=== PATIENT | male | born 1975 | race Caucasian/White ===

== ENCOUNTER 2024-03-21 16:35 | Inpatient (IN) | payer MEDICAID, OTHER ==
[~2024-03-21] VITALS: Ht 188 cm; Wt 81.6 kg
[2024-03-21 16:40] VITALS: O2SAT 100
[2024-03-21 19:51] LABS: HEMATOCRIT 32.6 % (42.0-52.0); HEMOGLOBIN 10.9 g/dL (14.0-18.0); MEAN CORPUSCULAR HEMOGLOBIN 31.7 pg (28.0-32.0); MEAN CORPUSCULAR HGB CONC 33.5 g/dL (31.0-37.0); MEAN CORPUSCULAR VOLUME 94.6 fL (80.0-94.0); PLATELET 199 x1000/uL (130-400); RED BLOOD CELL COUNT 3.45 mill/uL (4.7-6.1); RED CELL DISTRIBUTION WIDTH 16.8 % (11.6-14.6)
[2024-03-21 19:53] LABS: CHLORIDE 107 mEq/L (98-107); POTASSIUM 3.3 mEq/L (3.5-5.1); SODIUM 140 mEq/L (136-145)
[2024-03-21 19:54] LABS: CALCIUM 8.5 mg/dL (8.7-10.4); CARBON DIOXIDE 27 mEq/L (21-32)
[2024-03-21 19:59] LABS: CREATININE 1.1 mg/dL (0.6-1.3); GLUCOSE 100 mg/dL (70-105); UREA NITROGEN BLOOD 12 mg/dL (9-23)
[2024-03-21 20:47] LABS: D-DIMER 1.17 mg/L FEU (<0.50); INR 0.9; PARTIAL THROMBOPLASTIN TIME 24.2 sec (23.4-31.0); PROTHROMBIN TIME 10.3 sec (9.6-11.0)
[2024-03-21 22:24] LABS: TROPONIN I HIGH SENSITIVITY 85 ng/L (3.0-53)
[2024-03-21] MEDS: POTASSIUM CHLORIDE 20MEQ/PACKET PO ONE (23:05)
[2024-03-22 00:42] LABS: TROPONIN I HIGH SENSITIVITY 134 ng/L (3.0-53)
[2024-03-22] MEDS: ENOXAPARIN 80MG/0.8ML SYR SUBCUT ONE (00:45)
[2024-03-22] MEDS ORDERED: IOHEXOL-350 100 ML BOTTLE ONE (02:19)
[2024-03-22 09:00] VITALS: BP 157/81; PULSE 75; RESP 16; TEMP 36.696
[2024-03-22] MEDS ORDERED: ATOR20TA65 PO (09:46)
[2024-03-22] MEDS ORDERED: METO-539 PO (09:46)
[2024-03-22] MEDS ORDERED: ASPI-1497 PO (09:46)
[2024-03-22 10:30] VITALS: BP 154/88; PULSE 62; RESP 18; TEMP 36.44736; O2SAT 98
[2024-03-22 12:00] VITALS: BP 121/85; PULSE 71; RESP 18; TEMP 36.61404; O2SAT 99
[2024-03-22] MEDS ORDERED: ENOXAPARIN 40MG/0.4ML SYR SUBCUT SCH (12:15)
[2024-03-22] MEDS ORDERED: CLONIDINE 0.1MG TABLET PO PRN (12:15)
[2024-03-22] MEDS ORDERED: ONDANSETRON HCL 4MG/2ML INJ IV PRN (12:15)
[2024-03-22] MEDS ORDERED: MORPHINE SULFATE 2 MG/ML INJ (NOT FOR IM USE) IV PRN (12:15)
[2024-03-22] MEDS ORDERED: ACETAMINOPHEN 325MG TABLET PO PRN (12:15)
[2024-03-22 13:47] LABS: CLARITY URINE CLEAR (CLEAR); COLOR URINE YELLOW (YELLOW); GLUCOSE URINE NEGATIVE (NEGATIVE); KETONES URINE NEGATIVE (NEGATIVE); LEUKOCYTE ESTERASE URINE NEGATIVE (NEGATIVE); NITRITE URINE NEGATIVE (NEGATIVE); OCCULT BLOOD URINE NEGATIVE (NEGATIVE); PROTEIN URINE TRACE (NEGATIVE); SPECIFIC GRAVITY URINE 1.046 (1.005-1.030)
[2024-03-22 14:13] LABS: *AMPHETAMINES SCREEN URINE NEGATIVE (NEGATIVE); *BENZODIAZEPINES SCREEN URINE NEGATIVE (NEGATIVE)
[2024-03-22 14:14] LABS: *BARBITURATES SCREEN URINE NEGATIVE (NEGATIVE); *COCAINE SCREEN URINE NEGATIVE (NEGATIVE); CANNABINOID URINE SCREEN NEGATIVE (NEGATIVE); ECSTASY MDMA SCREEN URINE NEGATIVE (NEGATIVE); METHADONE URINE SCREEN NEGATIVE (NEGATIVE); OPIATES URINE SCREEN NEGATIVE (NEGATIVE); PHENCYCLIDINE URINE SCREEN NEGATIVE (NEGATIVE)
[2024-03-22 14:24] LABS: BACTERIA URINE FEW; RBC URINE 0-2 /hpf (0-2); SQUAMOUS EPITHELIAL CELL URINE NONE SEEN /lpf (RARE/1+); WBC URINE 0-2 /hpf (0-2); YEAST URINE NONE SEEN
[2024-03-22 16:00] VITALS: BP 133/82; PULSE 67; RESP 16; TEMP 36.6696; O2SAT 100
[2024-03-22 17:11] LABS: CREATINE KINASE MB FRACTION < 0.5 ng/mL (0.5-3.6); TROPONIN I HIGH SENSITIVITY 37 ng/L (3.0-53)
[2024-03-22 17:12] LABS: CREATINE KINASE 26 IU/L (46-171)
[2024-03-22 20:00] VITALS: BP 115/77; PULSE 82; RESP 19; TEMP 36.50292; O2SAT 100
[2024-03-22] MEDS ORDERED: ZOLPIDEM TARTRATE 5MG TABLET PO PRN (21:00)
[2024-03-22] MEDS: ENOXAPARIN 80MG/0.8ML SYR SUBCUT SCH (23:12)
[2024-03-23] VITALS: BP 116/78; PULSE 89; RESP 18; TEMP 36.3918; O2SAT 100
[2024-03-23 00:33] LABS: CREATINE KINASE MB FRACTION < 0.5 ng/mL (0.5-3.6)
[2024-03-23 00:34] LABS: CREATINE KINASE 25 IU/L (46-171); TROPONIN I HIGH SENSITIVITY 28 ng/L (3.0-53)
[2024-03-23 04:00] VITALS: BP 129/83; PULSE 69; RESP 19; TEMP 36.114; O2SAT 100
[2024-03-23 05:51] LABS: CHLORIDE 108 mEq/L (98-107); POTASSIUM 3.7 mEq/L (3.5-5.1); SODIUM 142 mEq/L (136-145)
[2024-03-23 05:52] LABS: BASOPHILS % 0.8 % (0.0-2.0); EOSINOPHILS % 1.6 % (0.0-5.0); HEMATOCRIT. 32.8 % (42.0-52.0); HEMOGLOBIN. 10.7 g/dL (14.0-18.0); LYMPHOCYTES % 36.4 % (20.0-50.0); MEAN CORPUSCULAR HEMOGLOBIN 30.8 pg (28.0-32.0); MEAN CORPUSCULAR HGB CONC 32.5 g/dL (31.0-37.0); MEAN CORPUSCULAR VOLUME 94.6 fL (80.0-94.0); MEAN PLATELET VOLUME 7.1 fl (7.4-10.4); MONOCYTES % 10.4 % (2.0-8.0); NEUTROPHILS % 50.8 % (40.0-76.0); PLATELET 205 x1000/uL (130-400); RED BLOOD CELL COUNT 3.46 mill/uL (4.7-6.1); RED CELL DISTRIBUTION WIDTH 16.9 % (11.6-14.6); WHITE BLOOD COUNT 4.4 x1000/uL (4.5-11.0)
[2024-03-23 05:54] LABS: CALCIUM 8.7 mg/dL (8.7-10.4); CARBON DIOXIDE 25 mEq/L (21-32)
[2024-03-23 05:59] LABS: GLUCOSE 93 mg/dL (70-105)
[2024-03-23 06:00] LABS: TRIGLYCERIDE 145 mg/dL (0-150); UREA NITROGEN BLOOD 10 mg/dL (9-23)
[2024-03-23 06:01] LABS: LDL CHOLESTEROL 66 mg/dL (5-100)
[2024-03-23 06:02] LABS: HDL CHOLESTEROL 45 mg/dL (>55); PHOSPHORUS 3.1 mg/dL (2.5-4.9)
[2024-03-23 06:31] LABS: CHOLESTEROL 129 mg/dL (<200)
[2024-03-23 08:00] VITALS: BP 113/74; PULSE 70; RESP 18; TEMP 35.5584; O2SAT 99
[2024-03-23] MEDS: ASPIRIN 81MG TABLET PO SCH (08:37)
[2024-03-23 12:00] VITALS: BP 125/77; PULSE 72; RESP 18; TEMP 35.5584; O2SAT 100
[2024-03-23 16:00] VITALS: BP 109/80; PULSE 73; RESP 17; TEMP 36.3918; O2SAT 98
[2024-03-23 20:00] VITALS: BP 107/72; PULSE 73; RESP 18; TEMP 36.61404; O2SAT 91
== END 2024-03-23 23:12 | disposition short-term general hospital (02) | DRG 282 ==
LOC: ER 16:35 → 8WST 03-22 00:39 → EDBEDREQ 03-22 00:41
PROVIDERS: ADMIT Internal Medicine; ATTEND Internal Medicine
DX: I21.4 Non-ST elevation (NSTEMI) myocardial infarction (principal); I48.91 Unspecified atrial fibrillation; I10 Essential (primary) hypertension; E78.00 Pure hypercholesterolemia, unspecified; Z79.82 Long term (current) use of aspirin
CPT/HCPCS: 36415; 71045; 71275; 80048; 80061; 80305; 81003; 82550; 82553; 83735; 83880; 84100; 84484; 85025; 85027; 85379; 93005; 99291; J1650; Q9967

== ENCOUNTER 2024-03-26 11:24 | Emergency (ER) | payer OTHER ==
[~2024-03-26] VITALS: Ht 180.3 cm; Wt 68.5 kg
[~2024-03-26 11:24] MED LIST: ASPI-1497 PO; ATOR20TA65 PO; METO-539 PO
[2024-03-26 11:25] VITALS: O2SAT 100
[2024-03-26 12:48] LABS: BASOPHILS % 0.9 % (0.0-2.0); EOSINOPHILS % 0.3 % (0.0-5.0); LYMPHOCYTES % 28.1 % (20.0-50.0); MEAN CORPUSCULAR HEMOGLOBIN 30.5 pg (28.0-32.0); MEAN CORPUSCULAR HGB CONC 31.7 g/dL (31.0-37.0); MEAN CORPUSCULAR VOLUME 96.1 fL (80.0-94.0); MEAN PLATELET VOLUME 7.3 fl (7.4-10.4); MONOCYTES % 8.4 % (2.0-8.0); NEUTROPHILS % 62.3 % (40.0-76.0); PLATELET 355 x1000/uL (130-400); RED BLOOD CELL COUNT 4.27 mill/uL (4.7-6.1); RED CELL DISTRIBUTION WIDTH 17.5 % (11.6-14.6); WHITE BLOOD COUNT 9.1 x1000/uL (4.5-11.0)
[2024-03-26] MEDS: ASPIRIN 81MG TABLET PO ONE (12:53)
[2024-03-26] MEDS: NITROGLYCERIN 0.4MG TABLET SL SL PRN (12:53)
[2024-03-26 12:58] LABS: INR 0.9; PARTIAL THROMBOPLASTIN TIME 23.6 sec (23.4-31.0); PROTHROMBIN TIME 10.2 sec (9.6-11.0)
[2024-03-26 12:59] LABS: CHLORIDE 104 mEq/L (98-107); POTASSIUM 5.1 mEq/L (3.5-5.1); SODIUM 137 mEq/L (136-145)
[2024-03-26 13:00] LABS: CALCIUM 9.7 mg/dL (8.7-10.4); CARBON DIOXIDE 21 mEq/L (21-32)
[2024-03-26 13:05] LABS: GLUCOSE 83 mg/dL (70-105); TROPONIN I HIGH SENSITIVITY 18 ng/L (3.0-53); UREA NITROGEN BLOOD 19 mg/dL (9-23)
[2024-03-26 13:07] LABS: ALANINE AMINOTRANSFERASE 20 IU/L (10-49); ALBUMIN 4.5 g/dL (3.2-4.8); ASPARTATE AMINOTRANSFERASE 36 IU/L (<34); BILIRUBIN TOTAL 0.3 mg/dL (0.1-1.0); PROTEIN TOTAL 7.8 g/dL (6.0-8.3)
[2024-03-26 13:37] LABS: CREATININE 1.6 mg/dL (0.6-1.3)
[2024-03-26 21:07] VITALS: BP 130/85; PULSE 85; RESP 15; TEMP 36.78072; O2SAT 97
== END 2024-03-26 21:26 | disposition short-term general hospital (02) ==
LOC: ER 11:24 → CANBEDREQ 16:50 → ER 21:26
DX: R07.89 Other chest pain (principal); R00.2 Palpitations; E78.00 Pure hypercholesterolemia, unspecified; I10 Essential (primary) hypertension; I49.9 Cardiac arrhythmia, unspecified; I48.91 Unspecified atrial fibrillation; Z79.82 Long term (current) use of aspirin
CPT/HCPCS: 80053; 83880; 83690; 85025; 85610; 85730; 84484; 36415; 71045; 93005; 99285; Z7610